=== PATIENT | male | born 1980 | race Caucasian/White ===

== ENCOUNTER 2023-12-28 22:04 | Emergency (ER) | payer MEDICARE, OTHER ==
[~2023-12-28] VITALS: Ht 170.2 cm; Wt 114.0 kg
[2023-12-28 22:13] VITALS: O2SAT 100
[2023-12-29] MEDS: IBUPROFEN 400MG TABLET PO ONE (01:02)
[2023-12-29 02:44] VITALS: BP 123/61; PULSE 100; RESP 16; TEMP 98.1
== END 2023-12-29 02:49 | disposition home or self-care (01) ==
LOC: ER 22:04
DX: R05.9 Cough, unspecified (principal); G47.30 Sleep apnea, unspecified
CPT/HCPCS: 71045; 99283

== ENCOUNTER 2024-01-06 12:31 | Emergency (ER) | payer OTHER, MEDICAID ==
[~2024-01-06] VITALS: Ht 170.2 cm; Wt 125.0 kg
[2024-01-06 12:34] VITALS: BP 131/85; PULSE 106; RESP 18; TEMP 98.2; O2SAT 97
[2024-01-06] MEDS ORDERED: ALBUTEROL 6.7GM HFA INHALER ORI STA (12:43)
[2024-01-06] MEDS ORDERED: PREDNISONE 20MG TABLET PO ONE (12:45)
[2024-01-06] MEDS ORDERED: ALBU6.7H15 INH (12:46)
[2024-01-06] MEDS ORDERED: P20 PO (12:46)
== END 2024-01-06 13:09 | disposition home or self-care (01) ==
LOC: ER 12:31
DX: J44.1 Chronic obstructive pulmonary disease with (acute) exacerbation (principal)
CPT/HCPCS: 99283; J7512

== ENCOUNTER 2024-06-07 15:13 | Emergency (ER) | payer MEDICAID, OTHER ==
[~2024-06-07] VITALS: Ht 170.2 cm; Wt 135.0 kg
[~2024-06-07 15:13] MED LIST: ALBU6.7H15 INH; P20 PO
[2024-06-07 15:15] VITALS: TEMP 98.2; O2SAT 95
[2024-06-07 17:01] LABS: BASOPHILS % 0.9 % (0.0-2.0); EOSINOPHILS % 2.3 % (0.0-5.0); HEMATOCRIT. 43.1 % (42.0-52.0); HEMOGLOBIN. 14.1 g/dL (14.0-18.0); MEAN CORPUSCULAR HEMOGLOBIN 26.7 pg (28.0-32.0); MEAN CORPUSCULAR HGB CONC 32.7 g/dL (31.0-37.0); MEAN CORPUSCULAR VOLUME 81.5 fL (80.0-94.0); MEAN PLATELET VOLUME 8.9 fl (7.4-10.4); MONOCYTES % 8.4 % (2.0-8.0); NEUTROPHILS % 73.4 % (40.0-76.0); PLATELET 249 x1000/uL (130-400); RED BLOOD CELL COUNT 5.29 mill/uL (4.7-6.1); RED CELL DISTRIBUTION WIDTH 16.5 % (11.6-14.6); WHITE BLOOD COUNT 7.5 x1000/uL (4.5-11.0)
[2024-06-07 17:12] LABS: INR 0.9; PROTHROMBIN TIME 10.3 sec (9.6-11.0)
[2024-06-07 17:20] LABS: CARBON DIOXIDE 33 mEq/L (21-32); CHLORIDE 99 mEq/L (98-107); POTASSIUM 4.1 mEq/L (3.5-5.1); SODIUM 135 mEq/L (136-145)
[2024-06-07 17:21] LABS: CALCIUM 9.6 mg/dL (8.7-10.4)
[2024-06-07 17:24] LABS: TROPONIN I HIGH SENSITIVITY 5 ng/L (3.0-53)
[2024-06-07 17:25] LABS: CREATININE 0.9 mg/dL (0.6-1.3)
[2024-06-07 17:26] LABS: GLUCOSE 281 mg/dL (70-105); UREA NITROGEN BLOOD 13 mg/dL (9-23)
[2024-06-07 17:27] LABS: ALANINE AMINOTRANSFERASE 70 IU/L (10-49)
[2024-06-07 17:28] LABS: ASPARTATE AMINOTRANSFERASE 46 IU/L (<34); BILIRUBIN TOTAL 0.3 mg/dL (0.1-1.0); PROTEIN TOTAL 6.9 g/dL (6.0-8.3)
[2024-06-07 17:30] LABS: BILIRUBIN DIRECT < 0.1 mg/dL (<=3.0)
[2024-06-07] MEDS: SODIUM CHLORIDE 0.9% 1,000 ML IV ONE (18:34)
[2024-06-07 18:46] LABS: TROPONIN I HIGH SENSITIVITY 5 ng/L (3.0-53)
[2024-06-07 18:51] LABS: CLARITY URINE CLEAR (CLEAR); COLOR URINE YELLOW (YELLOW); GLUCOSE URINE 3+ (NEGATIVE); KETONES URINE NEGATIVE (NEGATIVE); LEUKOCYTE ESTERASE URINE NEGATIVE (NEGATIVE); NITRITE URINE NEGATIVE (NEGATIVE); OCCULT BLOOD URINE NEGATIVE (NEGATIVE); PROTEIN URINE NEGATIVE (NEGATIVE); SPECIFIC GRAVITY URINE 1.028 (1.005-1.030); UROBILINOGEN URINE 0.2 E.U./dL (0.2-1.0)
[2024-06-07 19:37] LABS: BACTERIA URINE NONE SEEN; RBC URINE NONE SEEN /hpf (0-2); SQUAMOUS EPITHELIAL CELL URINE NONE SEEN /lpf (RARE/1+); WBC URINE NONE SEEN /hpf (0-2)
[2024-06-07 22:58] VITALS: BP 132/44; PULSE 99; RESP 20; O2SAT 97
[2024-06-07] MEDS ORDERED: IOHEXOL-350 100 ML BOTTLE ONE (23:01)
== END 2024-06-07 23:06 | disposition home or self-care (01) ==
LOC: ER 15:13
DX: R07.9 Chest pain, unspecified (principal); E11.65 Type 2 diabetes mellitus with hyperglycemia; J44.9 Chronic obstructive pulmonary disease, unspecified; Z79.899 Other long term (current) drug therapy
CPT/HCPCS: 36415; 71045; 71275; 80048; 80076; 81003; 84484; 85025; 85379; 93005; 99285; 99291; Q9967

== ENCOUNTER 2024-06-29 17:08 | Inpatient (IN) | payer MEDICARE, OTHER ==
[~2024-06-29] VITALS: Ht 177.8 cm; Wt 126.3 kg
[2024-06-29 17:42] VITALS: PULSE 75; RESP 18; O2SAT 95
[2024-06-29] MEDS: ALBUTEROL (0.083%) 2.5MG/3ML NEB HHN STA (17:52)
[2024-06-29] MEDS: IPRATROPIUM BROMIDE (0.02%) 0.5MG/2.5ML NEB HHN STA (17:52)
[2024-06-29] MEDS: ALBUTEROL (0.083%) 2.5MG/3ML NEB HHN SCH (18:00)
[2024-06-29 18:02] LABS: BASOPHILS % 0.4 % (0.0-2.0); EOSINOPHILS % 1.9 % (0.0-5.0); HEMATOCRIT. 44.4 % (42.0-52.0); HEMOGLOBIN. 14.2 g/dL (14.0-18.0); LYMPHOCYTES % 20.5 % (20.0-50.0); MEAN CORPUSCULAR HEMOGLOBIN 26.7 pg (28.0-32.0); MEAN CORPUSCULAR HGB CONC 32.1 g/dL (31.0-37.0); MEAN CORPUSCULAR VOLUME 83.3 fL (80.0-94.0); MEAN PLATELET VOLUME 7.6 fl (7.4-10.4); NEUTROPHILS % 68.2 % (40.0-76.0); PLATELET 216 x1000/uL (130-400); RED BLOOD CELL COUNT 5.33 mill/uL (4.7-6.1); RED CELL DISTRIBUTION WIDTH 16.9 % (11.6-14.6); WHITE BLOOD COUNT 6.9 x1000/uL (4.5-11.0)
[2024-06-29 18:07] LABS: CHLORIDE 99 mEq/L (98-107); POTASSIUM 3.9 mEq/L (3.5-5.1); SODIUM 135 mEq/L (136-145)
[2024-06-29] MEDS: METHYLPREDNISOLONE SOD SUCC 125MG/2ML (ACT-O-VIAL) IV STA (18:07)
[2024-06-29 18:08] LABS: CALCIUM 9.5 mg/dL (8.7-10.4); CARBON DIOXIDE 32 mEq/L (21-32)
[2024-06-29 18:13] LABS: CREATININE 0.9 mg/dL (0.6-1.3); GLUCOSE 282 mg/dL (70-105); UREA NITROGEN BLOOD 10 mg/dL (9-23)
[2024-06-29 18:14] LABS: TROPONIN I HIGH SENSITIVITY 5 ng/L (3.0-53)
[2024-06-29 18:40] VITALS: PULSE 82
[2024-06-29] MEDS: CEFTRIAXONE 1GM/50ML 50 ML IV ONE (19:14)
[2024-06-29 21:25] VITALS: PULSE 75; RESP 20; O2SAT 95
[2024-06-29] MEDS ORDERED: ALBUTEROL (0.083%) 2.5MG/3ML NEB HHN SCH (21:30)
[2024-06-29] MEDS: AZITHROMYCIN 500 MG in DEXT 5% WATER 250 ML IV SCH (21:38)
[2024-06-29 23:50] VITALS: BP 145/72; PULSE 97; RESP 18; TEMP 36.4736
[2024-06-30] VITALS (9 sets, daily range): BP systolic 118–127; BP diastolic 60–73; PULSE 73–106; RESP 18–22; TEMP 36.22512–36.50292; O2SAT 91–96
[2024-06-30] MEDS ORDERED: DEXTROSE 50% WATER 50ML SYRINGE IV PRN (05:30)
[2024-06-30] MEDS: BLOOD SUGAR DIAGNOSTIC STRIP TEST SCH (05:50)
[2024-06-30] MEDS: INSULIN LISPRO 100 UNITS/ML SUBCUT SCH (05:52)
[2024-06-30] MEDS: INSULIN GLARGINE 100 UNITS/ML SUBCUT NR (18:08)
[2024-06-30] MEDS ORDERED: CEFTRIAXONE 1GM/50ML 50 ML IV SCH (19:00)
[2024-06-30] MEDS: IPRATROPIUM/ALBUTEROL 0.5-3(2.5)MG/3ML NEB HHN SCH (20:40)
[2024-06-30 21:31] LABS: CLARITY URINE CLEAR (CLEAR); COLOR URINE YELLOW (YELLOW); GLUCOSE URINE 2+ (NEGATIVE); KETONES URINE NEGATIVE (NEGATIVE); LEUKOCYTE ESTERASE URINE NEGATIVE (NEGATIVE); NITRITE URINE NEGATIVE (NEGATIVE); OCCULT BLOOD URINE NEGATIVE (NEGATIVE); PH URINE 5.5 (4.5-8.0); PROTEIN URINE NEGATIVE (NEGATIVE); SPECIFIC GRAVITY URINE 1.028 (1.005-1.030); UROBILINOGEN URINE 0.2 E.U./dL (0.2-1.0)
[2024-06-30 21:47] LABS: *AMPHETAMINES SCREEN URINE NEGATIVE (NEGATIVE); *BARBITURATES SCREEN URINE NEGATIVE (NEGATIVE); *BENZODIAZEPINES SCREEN URINE NEGATIVE (NEGATIVE); *COCAINE SCREEN URINE NEGATIVE (NEGATIVE)
[2024-06-30 21:48] LABS: CANNABINOID URINE SCREEN NEGATIVE (NEGATIVE); ECSTASY MDMA SCREEN URINE NEGATIVE (NEGATIVE); METHADONE URINE SCREEN NEGATIVE (NEGATIVE); OPIATES URINE SCREEN NEGATIVE (NEGATIVE); PHENCYCLIDINE URINE SCREEN NEGATIVE (NEGATIVE)
[2024-06-30 21:51] LABS: BACTERIA URINE NONE SEEN; RBC URINE NONE SEEN /hpf (0-2); SQUAMOUS EPITHELIAL CELL URINE RARE /lpf (RARE/1+); WBC URINE NONE SEEN /hpf (0-2)
[2024-06-30] MEDS: INSULIN GLARGINE 100 UNITS/ML SUBCUT SCH (22:05)
[2024-07-01] VITALS (10 sets, daily range): BP systolic 122–143; BP diastolic 61–71; PULSE 69–96; RESP 16–22; TEMP 36.28068–36.55848; O2SAT 90–99
[2024-07-01 14:01] LABS: BG BASE EXCESS 8.4 mmol/L (-2.0-3.0); BG CARBOXYHEMOGLOBIN 1.1 % (0.5-1.5); BG DEOXYHEMOGLOBIN 8.6 % (0.0-5.0); BG FRACTION INSPIRED OXYGEN 21; BG HCO3 ACT 34.2 mmol/L (21.0-28.0); BG METHEMOGLOBIN 0.3 % (0.5-1.5); BG OXYGEN SATURATION 91.3 % (94.0-98.0); BG PCO2 50.7 mmHg (35.0-48.0); BG PH 7.447 (7.350-7.450); BG SAMPLE SITE RIGHT RADIAL; BG TOTAL HEMOGLOBIN 16.3 g/dL (13.5-17.5); BG VENT MODE ROOM AIR
[2024-07-02] VITALS (13 sets, daily range): BP systolic 123–138; BP diastolic 60–74; PULSE 65–91; RESP 16–22; TEMP 36.3918–36.55848; O2SAT 92–97
[2024-07-03] VITALS (11 sets, daily range): BP systolic 121–136; BP diastolic 54–74; PULSE 71–97; RESP 18–24; TEMP 36.22512–36.6696; O2SAT 90–98
[2024-07-04] VITALS (7 sets, daily range): BP systolic 112–118; BP diastolic 56–70; PULSE 70–106; RESP 14–22; TEMP 36.33624–36.61404; O2SAT 90–97
[2024-07-04] MEDS: SERTRALINE HCL 25MG TABLET PO SCH (09:41)
[2024-07-04 12:22] LABS: BASOPHILS % 0.3 % (0.0-2.0); EOSINOPHILS % 2.8 % (0.0-5.0); HEMATOCRIT. 48.2 % (42.0-52.0); HEMOGLOBIN. 15.7 g/dL (14.0-18.0); LYMPHOCYTES % 16.4 % (20.0-50.0); MEAN CORPUSCULAR HEMOGLOBIN 27.1 pg (28.0-32.0); MEAN CORPUSCULAR HGB CONC 32.5 g/dL (31.0-37.0); MEAN CORPUSCULAR VOLUME 83.3 fL (80.0-94.0); MEAN PLATELET VOLUME 8.3 fl (7.4-10.4); MONOCYTES % 7.1 % (2.0-8.0); NEUTROPHILS % 73.4 % (40.0-76.0); PLATELET 244 x1000/uL (130-400); RED BLOOD CELL COUNT 5.78 mill/uL (4.7-6.1); RED CELL DISTRIBUTION WIDTH 17.1 % (11.6-14.6); WHITE BLOOD COUNT 7.6 x1000/uL (4.5-11.0)
[2024-07-04 12:40] LABS: CALCIUM 9.7 mg/dL (8.7-10.4); CARBON DIOXIDE 30 mEq/L (21-32); CHLORIDE 101 mEq/L (98-107); POTASSIUM 4.1 mEq/L (3.5-5.1); SODIUM 136 mEq/L (136-145)
[2024-07-04 12:46] LABS: CREATININE 0.9 mg/dL (0.6-1.3); GLUCOSE 106 mg/dL (70-105); UREA NITROGEN BLOOD 12 mg/dL (9-23)
[2024-07-04 12:48] LABS: PHOSPHORUS 3.1 mg/dL (2.5-4.9)
[2024-07-05] VITALS (10 sets, daily range): BP systolic 112–137; BP diastolic 52–92; PULSE 75–99; RESP 16–24; TEMP 36.33624–36.78072; O2SAT 92–98
[2024-07-05 06:32] LABS: CARBON DIOXIDE 30 mEq/L (21-32); CHLORIDE 103 mEq/L (98-107); POTASSIUM 4.1 mEq/L (3.5-5.1); SODIUM 138 mEq/L (136-145)
[2024-07-05 06:33] LABS: CALCIUM 9.1 mg/dL (8.7-10.4)
[2024-07-05 06:37] LABS: CREATININE 0.9 mg/dL (0.6-1.3)
[2024-07-05 06:38] LABS: GLUCOSE 108 mg/dL (70-105); UREA NITROGEN BLOOD 12 mg/dL (9-23)
[2024-07-05 06:40] LABS: PHOSPHORUS 4.2 mg/dL (2.5-4.9)
[2024-07-05 07:47] LABS: BASOPHILS % 0.9 % (0.0-2.0); EOSINOPHILS % 3.4 % (0.0-5.0); HEMATOCRIT. 46.1 % (42.0-52.0); HEMOGLOBIN. 14.8 g/dL (14.0-18.0); LYMPHOCYTES % 21.2 % (20.0-50.0); MEAN CORPUSCULAR HEMOGLOBIN 27.1 pg (28.0-32.0); MEAN CORPUSCULAR HGB CONC 32.1 g/dL (31.0-37.0); MEAN CORPUSCULAR VOLUME 84.2 fL (80.0-94.0); MEAN PLATELET VOLUME 8.4 fl (7.4-10.4); NEUTROPHILS % 65.5 % (40.0-76.0); PLATELET 219 x1000/uL (130-400); RED BLOOD CELL COUNT 5.47 mill/uL (4.7-6.1); RED CELL DISTRIBUTION WIDTH 17.2 % (11.6-14.6); WHITE BLOOD COUNT 6.6 x1000/uL (4.5-11.0)
[2024-07-06] VITALS (11 sets, daily range): BP systolic 118–136; BP diastolic 57–77; PULSE 78–101; RESP 16–22; TEMP 36.114–37.55856; O2SAT 90–99
== END 2024-07-06 18:22 | disposition home or self-care (01) | DRG 193 ==
LOC: ER 17:08 → 7EST 22:19 → EDBEDREQTM 22:22 → EDBEDREQ 22:22
PROVIDERS: ADMIT Internal Medicine; ATTEND Internal Medicine
PROC: 5A09357 Assistance with Respiratory Ventilation, Less than 24 Consecutive Hours, Continuous Positive Airway Pressure (ICD-10-PCS; principal; 2024-07-01)
PROC: 5A09357 Assistance with Respiratory Ventilation, Less than 24 Consecutive Hours, Continuous Positive Airway Pressure (ICD-10-PCS; 2024-07-02)
PROC: GZ56ZZZ Individual Psychotherapy, Supportive (ICD-10-PCS; 2024-07-03)
PROC: 5A09357 Assistance with Respiratory Ventilation, Less than 24 Consecutive Hours, Continuous Positive Airway Pressure (ICD-10-PCS; 2024-07-04)
PROC: 5A09357 Assistance with Respiratory Ventilation, Less than 24 Consecutive Hours, Continuous Positive Airway Pressure (ICD-10-PCS; 2024-07-05)
PROC: 5A09357 Assistance with Respiratory Ventilation, Less than 24 Consecutive Hours, Continuous Positive Airway Pressure (ICD-10-PCS; 2024-07-06)
DX: J18.9 Pneumonia, unspecified organism (principal); J96.21 Acute and chronic respiratory failure with hypoxia; J44.0 Chronic obstructive pulmonary disease with (acute) lower respiratory infection; E66.2 Morbid (severe) obesity with alveolar hypoventilation; F33.0 Major depressive disorder, recurrent, mild; J44.1 Chronic obstructive pulmonary disease with (acute) exacerbation; Z68.41 Body mass index [BMI] 40.0-44.9, adult; I10 Essential (primary) hypertension; E11.65 Type 2 diabetes mellitus with hyperglycemia; Z68.39 Body mass index [BMI] 39.0-39.9, adult; Z79.4 Long term (current) use of insulin
CPT/HCPCS: 36415; 36600; 71045; 80048; 80305; 81003; 82375; 82805; 82962; 83036; 83735; 83880; 84100; 84484; 85025; 93005; 94003; 94640; 94660; 99285; J0456; J0696; J1815; J2919; J7060

== ENCOUNTER 2025-04-07 21:35 | Emergency (ER) | payer MEDICARE, OTHER ==
[~2025-04-07] VITALS: Ht 170.2 cm; Wt 125.0 kg
[~2025-04-07 21:35] MED LIST changes: +ALBU18HF2 IH; +TUSSL MT
[2025-04-07] MEDS: ACETAMINOPHEN 325MG TABLET PO ONE (22:31)
[2025-04-07] MEDS: PREDNISONE 20MG TABLET PO ONE (22:32)
[2025-04-07] MEDS: METFORMIN HCL 500MG TABLET PO ONE (22:32)
[2025-04-07] MEDS: ALBUTEROL (0.083%) 2.5MG/3ML NEB HHN ONE (22:49)
[2025-04-07 22:50] VITALS: PULSE 90; RESP 20; O2SAT 96
[2025-04-07 23:10] LABS: BASOPHILS % 1.5 % (0.0-2.0); EOSINOPHILS % 1.9 % (0.0-5.0); HEMATOCRIT. 44.7 % (42.0-52.0); HEMOGLOBIN. 14.6 g/dL (14.0-18.0); LYMPHOCYTES % 20.3 % (20.0-50.0); MEAN PLATELET VOLUME 8.5 fl (7.4-10.4); MONOCYTES % 7.4 % (2.0-8.0); NEUTROPHILS % 68.9 % (40.0-76.0); PLATELET 237 x1000/uL (130-400); RED BLOOD CELL COUNT 5.36 mill/uL (4.7-6.1); RED CELL DISTRIBUTION WIDTH 14.9 % (11.6-14.6)
[2025-04-07 23:23] LABS: CREATININE 1.0 mg/dL (0.6-1.3); UREA NITROGEN BLOOD 14 mg/dL (9-23)
[2025-04-07 23:24] LABS: TROPONIN I HIGH SENSITIVITY 4 ng/L (3.0-53)
[2025-04-07 23:43] VITALS: BP 116/71; PULSE 91; RESP 14; TEMP 36.4; O2SAT 95
[2025-04-07] MEDS ORDERED: IBUP-2029 MT (23:57)
[2025-04-07] MEDS ORDERED: P50 MT (23:57)
[2025-04-07] MEDS ORDERED: ALBU18HF2 IH (23:57)
== END 2025-04-08 00:25 | disposition home or self-care (01) ==
LOC: ER 21:35
DX: S09.90XA Unspecified injury of head, initial encounter (principal); G89.29 Other chronic pain; R07.89 Other chest pain; J44.9 Chronic obstructive pulmonary disease, unspecified; E11.9 Type 2 diabetes mellitus without complications; R06.02 Shortness of breath; Z79.899 Other long term (current) drug therapy; W01.0XXA Fall on same level from slipping, tripping and stumbling without subsequent striking against object, initial encounter; Y93.89 Activity, other specified; Y92.89 Other specified places as the place of occurrence of the external cause; Y99.8 Other external cause status
CPT/HCPCS: 99285; 70450; 71045; 80048; 83880; 85025; 84484; 36415; 94640; 93005; J7512; 94070; 94664; 98960

== ENCOUNTER 2025-07-01 02:58 | Emergency (ER) | payer MEDICARE, OTHER ==
[~2025-07-01] VITALS: Ht 165.1 cm; Wt 118.0 kg
[~2025-07-01 02:58] MED LIST changes: +IBUP-1455 MT; +P50 MT
[2025-07-01 03:13] VITALS: O2SAT 99
[2025-07-01] MEDS ORDERED: ACETAMINOPHEN 325MG TABLET PO ONE (03:15)
[2025-07-01] MEDS ORDERED: TETANUS, DIPHTHERIA, PERTUSSIS VAC/PF 0.5ML (>10YR OLD) IM ONE (03:15)
[2025-07-01] MEDS ORDERED: LIDOCAINE HCL 1% 20ML VIAL INFIL ONE (03:15)
[2025-07-01] MEDS ORDERED: BO1 TP (06:41)
[2025-07-01] MEDS ORDERED: LIDOCAINE HCL 1% 20ML VIAL INFIL SCH (06:45)
[2025-07-01] MEDS: ACETAMINOPHEN 325MG TABLET PO SCH (06:47)
[2025-07-01] MEDS: TETANUS, DIPHTHERIA, PERTUSSIS VAC/PF 0.5ML (>10YR OLD) IM ONE (06:49)
[2025-07-01 06:56] VITALS: BP 144/69; PULSE 82; RESP 16; TEMP 36.8; O2SAT 99
== END 2025-07-01 07:11 | disposition home or self-care (01) ==
LOC: ER 02:58
DX: S00.31XA Abrasion of nose, initial encounter (principal); E11.9 Type 2 diabetes mellitus without complications; J44.89 Other specified chronic obstructive pulmonary disease; G47.30 Sleep apnea, unspecified; Z79.52 Long term (current) use of systemic steroids; W01.0XXA Fall on same level from slipping, tripping and stumbling without subsequent striking against object, initial encounter; Y93.89 Activity, other specified; Y92.89 Other specified places as the place of occurrence of the external cause; Y99.8 Other external cause status
CPT/HCPCS: 70486; 73130; 90471; 90715; 99285